=== PATIENT | female | born 1945 | race Caucasian/White ===

== ENCOUNTER 2021-10-05 06:39 | Day surgery (SDC) | payer OTHER ==
[2021-10-04 14:56] LABS: BASOPHILS % (AUTO) 0.5 % (0.0-5.0); EOSINOPHILS % (AUTO) 3.1 % (0.0-8.0); HEMATOCRIT 41.9 % (36-48); LYMPHOCYTES % (AUTO) 21.9 % (21.0-51.0); MEAN CORPUSCULAR HGB CONC 30.3 g/dL (32.0-36.0); MEAN CORPUSCULAR VOLUME 89.1 fL (79-99); MONOCYTES % (AUTO) 6.2 % (3.0-13.0); NEUTROPHILS % (AUTO) 67.9 % (40.0-77.0); PLATELET COUNT (AUTO) 215 K/uL (130-400); RED CELL DISTRIBUTION WIDTH 16.5 % (11.0-15.5); WHITE BLOOD COUNT (AUTO) 12.4 K/uL (4.8-10.8)
[2021-10-04 15:05] LABS: CREATININE 1.2 mg/dL (0.5-1.5); POTASSIUM 4.1 mmol/L (3.5-5.1)
[2021-10-04 15:07] LABS: INR 1.05 (0.85-1.15); PROTHROMBIN TIME 11.4 SEC (9.6-11.6)
[2021-10-04 15:09] LABS: PARTIAL THROMBOPLASTIN TIME 31.3 SEC (26.3-35.5)
[2021-10-04 15:10] LABS: APPEARANCE,URINE CLOUDY (CLEAR); BILIRUBIN,URINE NEGATIVE (NEGATIVE); COLOR,URINE YELLOW (YELLOW); GLUCOSE, URINE (UA) NEGATIVE (NEGATIVE); KETONES,URINE NEGATIVE (NEGATIVE); LEUKOCYTE ESTERASE ,URINE NEGATIVE (NEGATIVE); NITRATE,URINE NEGATIVE (NEGATIVE); OCCULT BLOOD,URINE NEGATIVE (NEGATIVE); PROTEIN,URINE NEGATIVE (NEGATIVE); UROBILINOGEN,URINE 0.2 mg/dL (0.2-1.0)
[2021-10-04 15:23] LABS: BACTERIA,URINE Few /HPF (None Seen); RBC,URINE 0-1 /HPF (0-1); SQUAMOUS EPITHELIAL CELL,UR Moderate /HPF (0-2); WBC,URINE 0-1 /HPF (0-1)
[2021-10-04 15:24] LABS: AMORPHOUS SEDIMENT,UR Moderate /LPF (None Seen)
[2021-10-04 15:53] VITALS: BP 143/59
[2021-10-05] VITALS (10 sets, daily range): BP systolic 90–157; BP diastolic 40–88
[~2021-10-05] VITALS: Ht 152.4 cm; Wt 105.7 kg
[~2021-10-05 06:39] MED LIST: 0.9% NACL 500ML IV.SOLN 500 ML IV SCH; AMLO2.5T4 PO; ASPI-1005 PO; ATOR20TA65 PO; CHOL2000 PO; CINN500C PO; INSU100I26 SQ; LEVO150C4 PO; METO-408 PO; OMEG-148 PO; TRAZ-187 PO
[2021-10-05] MEDS ORDERED: 0.9%NACL 1000ML 1,000 ML IV ONE (07:56)
[2021-10-05] MEDS ORDERED: SODIUM BICARB 50MEQ 50ML VIAL 50 ML ONE (09:43)
[2021-10-05] MEDS ORDERED: IOHEXOL-350 50ML VIAL IV ONE (09:44)
[2021-10-05] MEDS ORDERED: IOHEXOL 350 MG/ML 100ML INFUS..BTL IV ONE (09:44)
[2021-10-05] MEDS ORDERED: HEPARIN 10,000 UNIT/10ML (1,000 UNIT/ML) VIAL ONE (09:44)
[2021-10-05] MEDS ORDERED: NITROGLYCERIN 50MG VIAL ONE (09:44)
[2021-10-05] MEDS ORDERED: NICARDIPINE 25MG INJ IV ONE (09:44)
[2021-10-05] MEDS ORDERED: LIDOCAINE HCL 1% MDV 50ML VIAL ONE (09:45)
[2021-10-05] MEDS ORDERED: FENTANYL CITRATE PF 50 MCG/1 ML 2ML VIAL ONE (09:45)
[2021-10-05] MEDS ORDERED: MIDAZOLAM HCL 1 MG/ML 2ML VIAL ONE (09:45)
[2021-10-05] MEDS ORDERED: 0.9%NACL 1000ML 1,000 ML IV SCH (12:00)
== END 2021-10-05 16:40 | disposition home or self-care (01) ==
LOC: DAH 06:39
PROVIDERS: ATTEND Internal Medicine Cardiovascular Disease
DX: I25.119 Atherosclerotic heart disease of native coronary artery with unspecified angina pectoris (principal); E66.9 Obesity, unspecified; E11.9 Type 2 diabetes mellitus without complications; G47.33 Obstructive sleep apnea (adult) (pediatric); Z79.01 Long term (current) use of anticoagulants; Z88.8 Allergy status to other drugs, medicaments and biological substances; Z88.0 Allergy status to penicillin; Z79.82 Long term (current) use of aspirin; Z79.890 Hormone replacement therapy; Z98.890 Other specified postprocedural states; Z83.3 Family history of diabetes mellitus; Z68.41 Body mass index [BMI] 40.0-44.9, adult
CPT/HCPCS: 36415; 71045; 80048; 81001; 82948 ×2; 85025; 85610; 85730; 93005; 93460; A4215; A4216; A4221; A4222; A4223 ×3; A4606; A4663; C1769 ×2; C1894 ×2; J1644 ×3; J2250; J3010; J3490 ×4; J7030; Q9965 ×2; Q9967 ×2; 99156; 99157